=== PATIENT | female | born 1975 | race Caucasian/White ===

== ENCOUNTER 2017-03-12 20:42 | Emergency (ER) | payer MEDICAID ==
[2017-03-12 21:06] VITALS: BP 109/78; PULSE 79; RESP 20; TEMP 98.6; O2SAT 95
[2017-03-12] MEDS ORDERED: Sodium Chloride 0.9% 1,000 ML IV STA (22:33)
[2017-03-12 23:25] LABS: BASO # 0.1 K/uL (0.0-0.2); EOS # 0.2 K/uL (0.0-0.7)
[2017-03-12 23:27] LABS: EOS % 2.5 % (0.0-4.0); HEMATOCRIT 40.5 % (34.0-47.0); LYMPH # 1.7 K/uL (1.0-4.3); MEAN CELL VOLUME 91.4 fL (81.0-99.0); MEAN CORPUSCULAR HEMOGLOBIN 29.9 pg (27.0-31.0); MEAN CORPUSCULAR HGB CONC 32.7 g/dL (33.0-37.0); MEAN PLATELET VOLUME 9.7 fL (7.2-11.7); MONO # 0.7 K/uL (0.0-0.8); MONO % 9.4 % (0.0-10.0); RED CELL DISTRIBUTION WIDTH 13.2 % (11.5-14.5); WHITE BLOOD COUNT 7.5 K/uL (4.8-10.8)
[2017-03-12 23:33] LABS: CHLORIDE 101 mmol/L (98-107)
[2017-03-12 23:34] LABS: POTASSIUM 3.1 mmol/L (3.6-5.2); SODIUM 139 mmol/L (132-148)
[2017-03-12 23:36] LABS: ALB/GLOB RATIO 1.3 (1.0-2.1); ALKALINE PHOSPHATASE 53 U/L (38-126); AST/SGOT 23 U/L (14-36); BILIRUBIN,TOTAL 0.6 mg/dL (0.2-1.3); BLOOD UREA NITROGEN 11 mg/dL (7-17); CARBON DIOXIDE 29 mmol/L (22-30); GFR AFRICAN-AMERICAN > 60; GLUCOSE,RANDOM 77 mg/dL (65-105); TOTAL PROTEIN 7.2 g/dL (6.3-8.3)
[2017-03-12 23:37] LABS: ALT/SGPT 13 U/L (9-52); CALCIUM 8.7 mg/dl (8.6-10.4)
[2017-03-12] MEDS ORDERED: Sodium Chloride 0.9% 1,000 ML ONE (23:38)
--- NOTE | 2017-03-12 23:53 | US ---
EXAM: US Abdomen Complete CLINICAL HISTORY: 41 years old, female; Pain; Abdominal pain; Flank; Right; Additional info: Ruq pain, r flank pain TECHNIQUE: Real-time ultrasound of the abdomen (complete) with image documentation. COMPARISON: No relevant prior studies available. FINDINGS: Liver: Probable mild fatty infiltration. No mass. No intrahepatic ductal dilatation. Gallbladder: Contracted. Probable small gallstone. No definite wall thickening. No pericholecystic fluid. Common bile duct: No dilatation. No stones. Pancreas: Unremarkable as visualized. Kidneys: Normal echogenicity. No hydronephrosis. Spleen: No splenomegaly. Aorta: Unremarkable. No aneurysm. Inferior vena cava: Unremarkable. Free fluid: No significant free fluid. IMPRESSION: 1. Probable cholelithiasis. 2. Incidental/non-acute findings are described above.
[2017-03-13 00:23] LABS: RBC URINE < 1 /hpf (0-3); URINE BILIRUBIN NEGATIVE (NEGATIVE); URINE BLOOD NEGATIVE (NEGATIVE); URINE COLOR Straw (YELLOW); URINE GLUCOSE (UA) NORMAL (Normal); URINE KETONE NEGATIVE (NEGATIVE); URINE LEUKOCYTE ESTERASE TRACE Leu/uL (Negative); URINE PROTEIN NEGATIVE (NEGATIVE); URINE UROBILINOGEN NORMAL mg/dL (0.2-1.0); WBC URINE < 1 /hpf (0-5)
--- NOTE | 2017-03-13 00:42 | C.PDOC ---
History Of Present Illness 41 y/o F p/w abdominal pain x 4 days. Describes as R sided, intermittent, associated with nausea. Denies injury, rash, dyspnea, vomiting, diarrhea. Time Seen by Provider: 03/12/17 22:28 Chief Complaint (Nursing): Abdominal Pain Past Medical History Vital Signs: Last Vital Signs Temp 98.6 F 03/12/17 20:58 Pulse 79 03/12/17 20:58 Resp 20 03/12/17 20:58 BP 109/78 03/12/17 20:58 Pulse Ox 95 03/13/17 00:42 - [facility] Procedures PHYSICAL THERAPY [facility] (04/20/13) Family History: States: No Known Family Hx - Social History Hx Alcohol Use: Yes Hx Substance Use: No Review Of Systems Except As Marked, All Systems Reviewed And Found Negative. Constitutional: Negative for: Fever Cardiovascular: Negative for: Chest Pain Physical Exam - Physical Exam Appears: No Acute Distress Skin: Normal Color Head: Atraumatic, Normacephalic Eye(s): bilateral: PERRL Oral Mucosa: Moist Neck: Normal, Supple Cardiovascular: Rhythm Regular Respiratory: Normal Breath Sounds Gastrointestinal/Abdominal: Soft, Tenderness (RUQ), No Distention, No Guarding, No Rebound Back: No CVA Tenderness Extremity: No Tenderness, No Swelling Pulses: Left Radial: Normal, Right Radial: Normal Neurological/Psych: Normal Speech, Normal Cognition ED Course And Treatment - Laboratory Results Result Diagrams: 03/12/17 23:24 03/12/17 23:24 O2 Sat by Pulse Oximetry: 95 Medical Decision Making Medical Decision Making: UTI vs cholecystitis vs pancreatitis. Labs, toradol, IVF, Zofran, US. FINDINGS: Liver: Probable mild fatty infiltration. No mass. No intrahepatic ductal dilatation. Gallbladder: Contracted. Probable small gallstone. No definite wall thickening. No pericholecystic fluid. Common bile duct: No dilatation. No stones. Pancreas: Unremarkable as visualized. Kidneys: Normal echogenicity. No hydronephrosis. Spleen: No splenomegaly. Aorta: Unremarkable. No aneurysm. Inferior vena cava: Unremarkable. Free fluid: No significant free fluid. IMPRESSION: 1. Probable cholelithiasis. 2. Incidental/non-acute findings are described above. Patient in no acute distress. Labs unremarkable. Will discharge home, f/u PMD/ surgery, return to ER for worsening pain, fever, vomiting, dyspnea. Disposition - Disposition Disposition: HOME/ ROUTINE Disposition Time: 00:46 Condition: STABLE Prescriptions: Ibuprofen [Motrin] 1 tab PO Q6 #30 tab Ondansetron ODT [Zofran ODT] 4 mg PO Q8 #12 odt Instructions: Gallstones (ED) - Clinical Impression Clinical Impression: Cholelithiasis
== END 2017-03-13 01:30 | disposition home or self-care (01) ==
LOC: C.ER 20:42
DX: K80.20 Calculus of gallbladder without cholecystitis without obstruction (principal)
CPT/HCPCS: 76700; 80053; 81001; 83690; 84703; 85025; 96361; 96374; 96375; 99284; J1885; J2405; J7040

== ENCOUNTER 2017-08-18 16:24 | Emergency (ER) | payer MEDICAID ==
[2017-08-18 16:50] VITALS: TEMP 100
--- NOTE | 2017-08-18 18:05 | C.PDOC ---
History Of Present Illness 42 year old female presents to the ED for evaluation of subjective fever, generalized body aches and diarrhea (non-bloody) which began yesterday. Patient did not check her temperature but took Motrin yesterday for her subjective fever. She denies nausea, vomiting. Time Seen by Provider: 08/18/17 16:56 Chief Complaint (Nursing): Fever History Per: Patient History/Exam Limitations: no limitations Onset/Duration Of Symptoms: Hrs Current Symptoms Are (Timing): Still Present Additional History Per: Patient Past Medical History Reviewed: Historical Data, Nursing Documentation, Vital Signs Vital Signs: Last Vital Signs Temp 100.0 F H 08/18/17 16:45 Pulse 75 08/18/17 18:49 Resp 18 08/18/17 18:49 BP 124/72 08/18/17 18:49 Pulse Ox 98 08/18/17 18:49 - Medical History PMH: No Chronic Diseases Surgical History: Cholecystectomy - [facility] Procedures PHYSICAL THERAPY NEC (04/20/13) Family History: States: Unknown Family Hx - Social History Hx Alcohol Use: Yes Hx Substance Use: No - Immunization History Hx Tetanus Toxoid Vaccination: No Hx Influenza Vaccination: No Hx Pneumococcal Vaccination: No Review Of Systems Constitutional: Positive for: Fever Gastrointestinal: Positive for: Diarrhea (non-bloody ). Negative for: Nausea, Vomiting Musculoskeletal: Positive for: Other (generalized body aches) Physical Exam - Physical Exam Appears: Non-toxic, No Acute Distress Skin: Normal Color, Warm, Dry, Other (healing surgical laparoscopic scars to abdomen ) Head: Atraumatic, Normacephalic Eye(s): bilateral: Normal Inspection Ear(s): Bilateral: Normal Nose: Normal, No Discharge Oral Mucosa: Moist Throat: Normal, No Erythema, No Exudate Neck: Supple Chest: Symmetrical, No Deformity, No Tenderness Cardiovascular: Rhythm Regular, No Murmur Respiratory: Normal Breath Sounds, No Rales, No Rhonchi, No Wheezing Gastrointestinal/Abdominal: Soft, No Tenderness, No Guarding, No Rebound Extremity: Normal ROM, Capillary Refill (less than 2 seconds ) Neurological/Psych: Normal Speech, Normal Cognition Gait: Steady ED Course And Treatment O2 Sat by Pulse Oximetry: 97 (on RA ) Pulse Ox Interpretation: Normal Medical Decision Making Medical Decision Making: Flu test ordered and resulted negative. Patient reevaluated and seated comfortably in no distress. Fever resolved. Abdomen remains soft and nontender. no signs of dehydration. Advise patient to continue with Tylenol or Motrin for fever and to try rice, bananas, to help with diarrhea. Disposition Counseled Patient/Family Regarding: Diagnosis, Need For Followup, Rx Given - Disposition Disposition: HOME/ ROUTINE Disposition Time: 18:03 Condition: GOOD Additional Instructions: Your Flu test was negative. Take Tylenol or Motrin alternating every 4-6 hours for Fever 100.4F or higher. Drink plenty of fluids to prevent dehydration. Take florastor to help with diarrhea. Try low-fat diet with increase in fluids such as sport drink, gelatin. Try soup, rice, bread, crackers, cereal, bananas to help with diarrhea. Follow up with your primary medical doctor or clinic in 2 -5 days for further evaluation. Return to the emergency department at any time if symptoms persist or worsen. Prescriptions: Naproxen [Naprosyn] 1 tab PO BID PRN #25 tab PRN Reason: Pain Saccharomyces Boulardi [Florastor] 250 mg PO BID #20 cap Instructions: Viral Syndrome (ED) Forms: [employer] [facility] (Sinhala) - POA Present On Arrival: None - Clinical Impression Clinical Impression: Influenza-like illness - PA / RAVELER / Resident Statement MD/DO has reviewed & agrees with the documentation as recorded. - Scribe Statement The provider has reviewed the documentation as recorded by the Scribe (Deysi Gonzalez) All medical record entries made by the Scribe were at my direction and personally dictated by me. I have reviewed the chart and agree that the record accurately reflects my personal performance of the history, physical exam, medical decision making, and the department course for this patient. I have also personally directed, reviewed, and agree with the discharge instructions and disposition.
[2017-08-18 18:50] VITALS: BP 124/72; PULSE 75; RESP 18
[2017-08-18 19:30] VITALS: O2SAT 97
== END 2017-08-18 19:00 | disposition home or self-care (01) ==
LOC: C.ER 16:24
DX: J11.1 Influenza due to unidentified influenza virus with other respiratory manifestations (principal)

== ENCOUNTER 2017-11-28 15:31 | Emergency (ER) | payer MEDICAID ==
[2017-11-28 15:57] VITALS: RESP 18
[2017-11-28 16:40] LABS: SQUAMOUS EPITHIAL 7 /hpf (0-5); URINE BACTERIA FEW (<OCC); URINE BILIRUBIN NEGATIVE (NEGATIVE); URINE BLOOD NEGATIVE (NEGATIVE); URINE CLARITY Hazy (Clear); URINE COLOR Yellow (YELLOW); URINE GLUCOSE (UA) NORMAL (Normal); URINE LEUKOCYTE ESTERASE 1+ Leu/uL (Negative); URINE PROTEIN NEGATIVE (NEGATIVE); URINE UROBILINOGEN NORMAL mg/dL (0.2-1.0)
--- NOTE | 2017-11-28 17:28 | RAD ---
HISTORY: pain COMPARISON: No prior. FINDINGS: BOWEL: Stool retention.No small or large bowel distension noted. BONES: Fracture lytic lesions. Mild bilateral hip arthrosis OTHER FINDINGS: Bilateral 1 mm hemipelvic phleboliths probable. Right upper quadrant cholecystectomy clips inferred IMPRESSION: . Stool retention especially right colon. No mechanical bowel obstruction appreciated
--- NOTE | 2017-11-28 17:32 | C.PDOC ---
History Of Present Illness 42yo female with intermittent migraine headaches presents to ED complaining of headache and dull abdominal pain. She was seen and evaluated by her PCP and has medications for her pain. She denies any dysuria, fever, chills, cough, neck pain, chest pain or shortness of breath. Patient states she does not have a headache at present. No other complaints. Time Seen by Provider: 11/28/17 16:21 Chief Complaint (Nursing): Female Genitourinary History Per: Patient History/Exam Limitations: no limitations Onset/Duration Of Symptoms: Days Current Symptoms Are (Timing): Still Present Past Medical History Reviewed: Historical Data, Nursing Documentation, Vital Signs Vital Signs: Last Vital Signs Temp 98.2 F 11/28/17 17:44 Pulse 72 11/28/17 17:44 Resp 18 11/28/17 17:44 BP 114/81 11/28/17 17:44 Pulse Ox 100 11/28/17 17:44 - Medical History PMH: No Chronic Diseases Surgical History: Cholecystectomy - [facility] Procedures PHYSICAL THERAPY [facility] (04/20/13) Family History: States: Unknown Family Hx - Social History Hx Alcohol Use: Yes Hx Substance Use: No - Immunization History Hx Tetanus Toxoid Vaccination: No Hx Influenza Vaccination: No Hx Pneumococcal Vaccination: No Review Of Systems Except As Marked, All Systems Reviewed And Found Negative. Constitutional: Negative for: Fever, Chills Cardiovascular: Negative for: Chest Pain Respiratory: Negative for: Shortness of Breath Gastrointestinal: Positive for: Abdominal Pain Genitourinary: Negative for: Dysuria Musculoskeletal: Negative for: Neck Pain Neurological: Negative for: Headache Physical Exam - Physical Exam Appears: Non-toxic, No Acute Distress Skin: Normal Color, Warm, Dry Head: Normacephalic Eye(s): bilateral: Normal Inspection Nose: Normal Oral Mucosa: Moist Throat: Normal, No Erythema, No Exudate Neck: Normal ROM, Supple Chest: Symmetrical Cardiovascular: Rhythm Regular Respiratory: Normal Breath Sounds, No Wheezing Gastrointestinal/Abdominal: Normal Exam, Soft, No Tenderness Neurological/Psych: Oriented x3, Normal Speech, Normal Cognition ED Course And Treatment O2 Sat by Pulse Oximetry: 98 (RA) Pulse Ox Interpretation: Normal Medical Decision Making Medical Decision Making: Impression: Abdominal discomfort Plan: -- XR Abdomen flat plate XR reviewed, patient is constipated. Stable for discharge home. Disposition Counseled Patient/Family Regarding: Studies Performed, Diagnosis, Need For Followup - Disposition Disposition: HOME/ ROUTINE Disposition Time: 17:30 Condition: STABLE Prescriptions: Psyllium Husk (with Sugar) [Metamucil Smooth Texture] 3.4 gm PO DAILY #15 packet Instructions: Constipation, Adult (DC) Forms: [facility] (Polish), General Discharge Instructions - POA Present On Arrival: None - Clinical Impression Clinical Impression: Constipation - Scribe Statement The provider has reviewed the documentation as recorded by the Scribe (Christa Gregory) Provider Attestation: All medical record entries made by the Scribe were at my direction and personally dictated by me. I have reviewed the chart and agree that the record accurately reflects my personal performance of the history, physical exam, medical decision making, and the department course for this patient. I have also personally directed, reviewed, and agree with the discharge instructions and disposition.
[2017-11-28 17:45] VITALS: BP 114/81; PULSE 72; TEMP 98.2
[2017-11-28 19:50] VITALS: O2SAT 98
== END 2017-11-28 17:51 | disposition home or self-care (01) ==
LOC: C.ER 15:31
DX: K59.00 Constipation, unspecified (principal)

== ENCOUNTER 2018-02-16 15:40 | Emergency (ER) | payer MEDICAID ==
[2018-02-16] MEDS ORDERED: Sodium Chloride 0.9% 1,000 ML IV ONE (15:54)
[2018-02-16] MEDS ORDERED: Sodium Chloride 0.9% 1,000 ML ONE (16:04)
[2018-02-16 16:24] LABS: BASO # 0.1 K/uL (0.0-0.2); BASO % 1.1 % (0.0-2.0); EOS # 0.2 K/uL (0.0-0.7); EOS % 2.9 % (0.0-4.0); LYMPH # 1.8 K/uL (1.0-4.3); LYMPH % 22.5 % (20.0-40.0); MEAN CORPUSCULAR HEMOGLOBIN 30.5 pg (27.0-31.0); MEAN CORPUSCULAR HGB CONC 34.8 g/dL (33.0-37.0); MEAN PLATELET VOLUME 8.6 fL (7.2-11.7); MONO # 0.7 K/uL (0.0-0.8); MONO % 8.6 % (0.0-10.0); NEUT # 5.2 K/uL (1.8-7.0); NEUT % 64.9 % (50.0-75.0); NRBC % 0.2 % (0.0-2.0); RBC 4.58 Mil/uL (3.80-5.20); RED CELL DISTRIBUTION WIDTH 12.7 % (11.5-14.5)
[2018-02-16 16:25] LABS: MEAN CELL VOLUME 87.5 fL (81.0-99.0)
[2018-02-16 16:28] LABS: SQUAMOUS EPITHIAL < 1 /hpf (0-5); URINE BACTERIA RARE (<OCC); URINE BILIRUBIN NEGATIVE (NEGATIVE); URINE BLOOD NEGATIVE (NEGATIVE); URINE CLARITY Clear (Clear); URINE COLOR Yellow (YELLOW); URINE GLUCOSE (UA) NORMAL (Normal); URINE LEUKOCYTE ESTERASE TRACE Leu/uL (Negative); URINE PROTEIN NEGATIVE (NEGATIVE); URINE UROBILINOGEN NORMAL mg/dL (0.2-1.0)
[2018-02-16 16:29] LABS: HCG,QUALITATIVE URINE NEGATIVE (NEGATIVE)
[2018-02-16 16:37] LABS: ALB/GLOB RATIO 1.3 (1.0-2.1); ALBUMIN 4.3 g/dL (3.5-5.0); ALT/SGPT 13 U/L (9-52); AST/SGOT 36 U/L (14-36); BLOOD UREA NITROGEN 11 mg/dL (7-17); CALCIUM 8.6 mg/dl (8.6-10.4); GFR AFRICAN-AMERICAN > 60; GFR NON-AFRICAN AMERICAN > 60; LIPASE 74 U/L (23-300)
[2018-02-16 17:04] LABS: BARBITURATES, UR NEGATIVE (NEGATIVE); BENZODIAZEPINES, UR NEGATIVE (NEGATIVE); OPIATES, UR NEGATIVE (NEGATIVE)
--- NOTE | 2018-02-16 17:10 | C.PDOC ---
History Of Present Illness 42 year old female presents to the ED c/o crampy periumbilical abdominal pain for the past 2-3 days. Patient denies fever, chills, nausea, vomit, diarrhea, constipations, recent travel, sick contacts. Time Seen by Provider: 02/16/18 15:48 Chief Complaint (Nursing): Abdominal Pain History Per: Patient History/Exam Limitations: no limitations Onset/Duration Of Symptoms: Days (2-3) Current Symptoms Are (Timing): Still Present Location Of Pain/Discomfort: Periumbilical Radiation Of Pain To:: None Quality Of Discomfort: Cramping Associated Symptoms: denies: Nausea, Vomiting, Diarrhea, Constipation Exacerbating Factors: None Alleviating Factors: None Recent travel outside of the [place]: No Additional History Per: Patient Abnormal Vaginal Bleeding: No Past Medical History Reviewed: Historical Data, Nursing Documentation, Vital Signs Vital Signs: Last Vital Signs Temp 98.5 F 02/16/18 17:24 Pulse 69 02/16/18 17:24 Resp 18 02/16/18 17:24 BP 107/71 02/16/18 17:24 Pulse Ox 100 02/16/18 17:24 - Medical History PMH: No Chronic Diseases Surgical History: Cholecystectomy - [facility] Procedures PHYSICAL THERAPY [facility]EC (04/20/13) Family History: States: Unknown Family Hx - Social History Hx Alcohol Use: Yes Hx Substance Use: No - Immunization History Hx Tetanus Toxoid Vaccination: No Hx Influenza Vaccination: No Hx Pneumococcal Vaccination: No Review Of Systems Constitutional: Negative for: Fever, Chills Cardiovascular: Negative for: Chest Pain Respiratory: Negative for: Shortness of Breath Gastrointestinal: Positive for: Abdominal Pain. Negative for: Nausea, Vomiting , Constipation Skin: Negative for: Rash Neurological: Negative for: Weakness, Numbness Physical Exam - Physical Exam Appears: Non-toxic, No Acute Distress Skin: Normal Color, Warm, Dry Head: Atraumatic, Normacephalic Eye(s): bilateral: Normal Inspection Nose: No Discharge Oral Mucosa: Moist Neck: Normal ROM, Supple Chest: Symmetrical Cardiovascular: Rhythm Regular, No Murmur Respiratory: Normal Breath Sounds, No Rales, No Rhonchi, No Wheezing Gastrointestinal/Abdominal: Soft, No Tenderness, No Guarding, No Rebound, Other (obese. dull to percussion on the right side. tympanic to percussion on the epigastrrum. negative Murpohys and McBurneys) Extremity: Normal ROM, No Tenderness, No Swelling Neurological/Psych: Oriented x3, Normal Speech Gait: Steady ED Course And Treatment - Laboratory Results Result Diagrams: 02/16/18 16:21 02/16/18 16:21 Lab Interpretation: Normal (ua nl) Urine POC: Negative O2 Sat by Pulse Oximetry: 99 (ON RA) Pulse Ox Interpretation: Normal - Radiology CXR: Interpreted by Me CXR Interpretation: Yes: No Acute Disease - Other Rad abd x 2 X-Ray: Interpreted by Me (+FOS) Reevaluation Time: 17:11 Reassessment Condition: Unchanged Medical Decision Making Medical Decision Making: Impression: abdominal pain constipation Plan: * Labs * Obstructive series X-Ray * IV fluids * Toradol 30 mg IVP * UA Disposition Doctor Will See Patient In The: Office Counseled Patient/Family Regarding: Studies Performed, Diagnosis - Disposition Referrals: [facility] [Outside] [facility] [Outside] Disposition: HOME/ ROUTINE Disposition Time: 17:11 Condition: GOOD Additional Instructions: drink a bottle of Mag Citrate now- re-evaluate your abdominal discomfort after using the bathroom 2-3 times diet and exercise changes occasional laxatives as needed Instructions: Constipation in Adults Forms: [facility] (Czech) - Clinical Impression Clinical Impression: Colicky periumbilical abdominal pain - Scribe Statement The provider has reviewed the documentation as recorded by the Scribe Onur Gee All medical record entries made by the Scribe were at my direction and personally dictated by me. I have reviewed the chart and agree that the record accurately reflects my personal performance of the history, physical exam, medical decision making, and the department course for this patient. I have also personally directed, reviewed, and agree with the discharge instructions and disposition.
[2018-02-16 17:25] VITALS: BP 107/71; PULSE 69; RESP 18; TEMP 98.5
[2018-02-16 17:31] LABS: PHENCYCLIDINE, UR NEGATIVE (NEGATIVE)
--- NOTE | 2018-02-16 18:00 | RAD ---
PROCEDURE: Radiographs of the chest and abdomen (obstructive series) HISTORY: abd pain COMPARISON: No prior. TECHNIQUE: AP radiograph of the chest, with upright and supine radiographs of the abdomen. FINDINGS: CHEST: Lungs: Clear. Cardiovascular: Normal size heart. No pulmonary vascular congestion. Pleura: No pleural fluid. No pneumothorax. Other findings: None. ABDOMEN AND PELVIS: Bowel: Unremarkable bowel gas pattern. No evidence of mechanical obstruction. Moderate retained fecal material seen the right hemicolon. Free air: None. Bones: Unremarkable. Other findings: None. IMPRESSION: Unremarkable radiographs of chest and abdomen. No evidence of mechanical bowel obstruction.
[2018-02-16 19:56] VITALS: O2SAT 99
== END 2018-02-16 17:25 | disposition home or self-care (01) ==
LOC: C.ER 15:40
DX: R10.84 Generalized abdominal pain (principal)
CPT/HCPCS: 74022; 80053; 80324; 80345; 80346; 80349; 80353; 80358; 80361; 81001; 83690; 83992; 84703; 85025; 96361; 96374; 99284; J1885; J7040

== ENCOUNTER 2018-04-21 16:02 | Emergency (ER) | payer MEDICAID ==
[2018-04-21 16:44] VITALS: BP 107/76; PULSE 78; RESP 20; TEMP 98.2; O2SAT 100
--- NOTE | 2018-04-21 17:42 | C.PDOC ---
History Of Present Illness 42 y/o female c/o headache, cough w/ white sputum, sore throat, and subjective fever x 1 week. Pt states that the cough is worse at night with post nasal drip. Denies having sick contacts. Time Seen by Provider: 04/21/18 16:48 Chief Complaint (Nursing): Cough, Cold, Congestion History Per: Patient History/Exam Limitations: no limitations Onset/Duration Of Symptoms: Days Current Symptoms Are (Timing): Still Present Severity: Moderate Past Medical History Reviewed: Historical Data, Nursing Documentation, Vital Signs Vital Signs: Last Vital Signs Temp 98.2 F 04/21/18 16:41 Pulse 78 04/21/18 16:41 Resp 20 04/21/18 16:41 BP 107/76 04/21/18 16:41 Pulse Ox 100 04/21/18 17:54 - Medical History PMH: No Chronic Diseases Surgical History: Cholecystectomy - [facility] Procedures PHYSICAL THERAPY [facility] (04/20/13) Family History: States: No Known Family Hx - Social History Hx Alcohol Use: Yes Hx Substance Use: No - Immunization History Hx Tetanus Toxoid Vaccination: Yes Hx Influenza Vaccination: No Hx Pneumococcal Vaccination: No Review Of Systems Constitutional: Positive for: Fever (subjective fever). Negative for: Chills ENT: Positive for: Throat Pain Respiratory: Positive for: Cough, Sputum (white sputum) Gastrointestinal: Negative for: Nausea, Vomiting Neurological: Positive for: Headache Physical Exam - Physical Exam Appears: Non-toxic, No Acute Distress Skin: Normal Color, Warm, Dry Head: Atraumatic, Normacephalic Eye(s): bilateral: Normal Inspection Ear(s): Bilateral: TM Obscured By Wax Nose: Normal, No Discharge Oral Mucosa: Moist Throat: Normal, No Erythema, No Exudate Neck: Supple Chest: Symmetrical Cardiovascular: Rhythm Regular Respiratory: Normal Breath Sounds, No Rales, No Rhonchi, No Wheezing Neurological/Psych: Oriented x3, Normal Speech ED Course And Treatment O2 Sat by Pulse Oximetry: 100 (RA) Pulse Ox Interpretation: Normal Medical Decision Making Medical Decision Making: Plan: --POC Urine Test Updates: Patient has been discharged and instructed to follow up with PMD in 2-3 days. Disposition Counseled Patient/Family Regarding: Diagnosis, Need For Followup, Rx Given - Disposition Disposition: HOME/ ROUTINE Disposition Time: 17:40 Condition: GOOD Additional Instructions: Please take medications as prescribed. Follow up with your doctor in 2-3 days. Return to R for any worse symptoms. Prescriptions: Benzonatate [Tessalon Perle] 100 mg PO TID #12 capsule Loratadine/Pseudoephedrine [Claritin-D 24 Hour Tablet] 1 each PO DAILY #14 tab.er.24h Naproxen 500 mg PO BID #20 tab Instructions: Upper Respiratory Infection (ED) Forms: [facility] (Cymraes), General Discharge Instructions - Clinical Impression Clinical Impression: Upper respiratory infection - PA / SENIOR PROCESS CONTROL TECH / Resident Statement MD/DO has reviewed & agrees with the documentation as recorded. - Scribe Statement The provider has reviewed the documentation as recorded by the Miki Hwang Provider Attestation All medical record entries made by the Miki were at my direction and personally dictated by me. I have reviewed the chart and agree that the record accurately reflects my personal performance of the history, physical exam, medical decision making, and the department course for this patient. I have also personally directed, reviewed, and agree with the discharge instructions and disposition.
== END 2018-04-21 17:55 | disposition home or self-care (01) ==
LOC: C.ER 16:02
DX: J06.9 Acute upper respiratory infection, unspecified (principal)

== ENCOUNTER 2018-05-27 15:27 | Emergency (ER) | payer MEDICAID ==
[2018-05-27 15:33] VITALS: PULSE 69; RESP 18; O2SAT 98
--- NOTE | 2018-05-27 15:45 | C.PDOC ---
History Of Present Illness 43 y/o female with history of cholecystectomy presents to ED with c/o right sided abdominal pain for 3 weeks. Occasional has diarrhea though reports last bowel movement yesterday as normal. REports that currently she has no pain. Notes she has a h/o similar episodes in the past and was diagnosed with constipation. Denies fever, nausea, vomiting, dysuria, hematuria, back pain, vaginal discharge/bleeding or any other complaints at this time. Time Seen by Provider: 05/27/18 15:41 Chief Complaint (Nursing): Abdominal Pain History Per: Patient History/Exam Limitations: no limitations Onset/Duration Of Symptoms: Intermittent Episodes Location Of Pain/Discomfort: RUQ, RLQ Past Medical History Reviewed: Historical Data, Nursing Documentation, Vital Signs Vital Signs: Last Vital Signs Temp 98 F 05/27/18 18:29 Pulse 69 05/27/18 18:29 Resp 18 05/27/18 18:29 BP 136/79 05/27/18 18:29 Pulse Ox 98 05/27/18 18:29 - Medical History PMH: No Chronic Diseases Surgical History: Cholecystectomy - [facility] Procedures PHYSICAL THERAPY NEC (04/20/13) Family History: States: No Known Family Hx - Social History Hx Alcohol Use: Yes Hx Substance Use: No - Immunization History Hx Tetanus Toxoid Vaccination: Yes Hx Influenza Vaccination: No Hx Pneumococcal Vaccination: No Review Of Systems Except As Marked, All Systems Reviewed And Found Negative. Gastrointestinal: Positive for: Abdominal Pain, Diarrhea Skin: Negative for: Rash Physical Exam - Physical Exam Appears: Well, Non-toxic, No Acute Distress Skin: Warm, Dry, No Rash Head: Atraumatic, Normacephalic Eye(s): bilateral: Normal Inspection, EOMI Nose: Normal Oral Mucosa: Moist Neck: Normal, Normal ROM, Supple Chest: Symmetrical Cardiovascular: Rhythm Regular Respiratory: Normal Breath Sounds, No Rales, No Rhonchi, No Wheezing Gastrointestinal/Abdominal: Normal Exam, Bowel Sounds, Soft, No Tenderness, No Guarding, No Rebound Back: No CVA Tenderness, No Muscle Spasm Neurological/Psych: Oriented x3, Normal Speech, Normal Cognition ED Course And Treatment - Laboratory Results Result Diagrams: 05/27/18 16:26 05/27/18 16:26 O2 Sat by Pulse Oximetry: 98 (RA) Pulse Ox Interpretation: Normal - Other Rad Obs Series X-Ray: Viewed By Me, Read By Radiologist Interpretation: Accession No. : [id number]. Patient Name / ID : VENKATA RICE / [id number]. Exam Date : 05/27/2018 16:44:11 ( Approved ). Study Comment : Sex / Age : F / 43Y. Creator : Jeff Smith MD. Dictator : Jeff Smith MD. 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 Approver2 : Report Date : 05/27/2018 18:30:36. My Comment : . Date of service: 05/27/2018. PROCEDURE: Radiographs of the chest and abdomen ( obstructive series). HISTORY: Abd Pain. COMPARISON: No prior. TECHNIQUE: AP radiograph of the chest, with upright and supine radiographs of the abdomen. FINDINGS: CHEST: Lungs: Clear. Cardiovascular: Normal size heart. No pulmonary vascular congestion. Pleura: No pleural fluid. No pneumothorax. Other findings: None. ABDOMEN AND PELVIS: Bowel: Unremarkable bowel gas pattern. No evidence of mechanical obstruction. Free air: None. Bones: Unremarkable. Other findings: Surgical clips right upper quadrant abdomen. IMPRESSION: Unremarkable radiographs of chest and abdomen. No evidence of mechanical bowel obstruction. Progress Note: UA, blood work, Obstructive series ordered. On re-evaluation, patient is resting comfortably, abdomen remains soft, and patient is tolerating PO. Labs and XR show no indication of acute pathology or surgical abdomen. OFfered further imaging, PT states the pain has not returned while she has been in the ed and requests to be discharge. Instructed to follow up with the GI in 1 -2 days or return to ER if symtpoms persist or worsen. Disposition - Disposition Referrals: Elie Torres MD [Staff Provider] - Disposition: HOME/ ROUTINE Disposition Time: 17:38 Condition: STABLE Additional Instructions: Follow up with your primary medical doctor or clinic in 2-5 days for further evaluation. Return to the emergency department at any time if symptoms persist or worsen. 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 - Scribe Statement The provider has reviewed the documentation as recorded by the Scribleti Vilchis All medical record entries made by the Miki were at my direction and personally dictated by me. I have reviewed the chart and agree that the record accurately reflects my personal performance of the history, physical exam, medical decision making, and the department course for this patient. I have also personally directed, reviewed, and agree with the discharge instructions and disposition.
[2018-05-27 16:31] LABS: BASO # 0.1 K/uL (0.0-0.2); BASO % 1.2 % (0.0-2.0); EOS # 0.3 K/uL (0.0-0.7); EOS % 4.2 % (0.0-4.0); HEMOGLOBIN 13.5 g/dL (11.0-16.0); LYMPH # 1.8 K/uL (1.0-4.3); LYMPH % 26.7 % (20.0-40.0); MEAN CELL VOLUME 86.7 fL (81.0-99.0); MEAN CORPUSCULAR HEMOGLOBIN 29.6 pg (27.0-31.0); MEAN CORPUSCULAR HGB CONC 34.1 g/dL (33.0-37.0); MEAN PLATELET VOLUME 8.3 fL (7.2-11.7); MONO # 0.7 K/uL (0.0-0.8); MONO % 10.3 % (0.0-10.0); NEUT % 57.6 % (50.0-75.0); RBC 4.58 Mil/uL (3.80-5.20); RED CELL DISTRIBUTION WIDTH 13.1 % (11.5-14.5); WHITE BLOOD COUNT 6.9 K/uL (4.8-10.8)
[2018-05-27 16:40] LABS: SQUAMOUS EPITHIAL 6 /hpf (0-5); URINE BACTERIA RARE (<OCC); URINE BILIRUBIN NEGATIVE (NEGATIVE); URINE BLOOD NEGATIVE (NEGATIVE); URINE CLARITY Clear (Clear); URINE COLOR Yellow (YELLOW); URINE GLUCOSE (UA) NORMAL (Normal); URINE LEUKOCYTE ESTERASE 2+ Leu/uL (Negative); URINE PROTEIN NEGATIVE (NEGATIVE); URINE UROBILINOGEN NORMAL mg/dL (0.2-1.0)
[2018-05-27 16:41] LABS: HCG,QUALITATIVE URINE NEGATIVE (NEGATIVE)
[2018-05-27 16:43] LABS: ALB/GLOB RATIO 1.4 (1.0-2.1); ALBUMIN 4.2 g/dL (3.5-5.0); ALT/SGPT 19 U/L (9-52); AST/SGOT 25 U/L (14-36); BLOOD UREA NITROGEN 11 mg/dL (7-17); CALCIUM 8.8 mg/dl (8.6-10.4); GFR NON-AFRICAN AMERICAN > 60; LIPASE 66 U/L (23-300)
[2018-05-27 18:29] VITALS: BP 136/79; TEMP 98
--- NOTE | 2018-05-27 18:32 | RAD ---
Date of service: 05/27/2018 PROCEDURE: Radiographs of the chest and abdomen (obstructive series) HISTORY: Abd Pain COMPARISON: No prior. TECHNIQUE: AP radiograph of the chest, with upright and supine radiographs of the abdomen. FINDINGS: CHEST: Lungs: Clear. Cardiovascular: Normal size heart. No pulmonary vascular congestion. Pleura: No pleural fluid. No pneumothorax. Other findings: None. ABDOMEN AND PELVIS: Bowel: Unremarkable bowel gas pattern. No evidence of mechanical obstruction. Free air: None. Bones: Unremarkable. Other findings: Surgical clips right upper quadrant abdomen. IMPRESSION: Unremarkable radiographs of chest and abdomen. No evidence of mechanical bowel obstruction.
== END 2018-05-27 18:29 | disposition home or self-care (01) ==
LOC: C.ER 15:27
DX: R10.11 Right upper quadrant pain (principal); R10.31 Right lower quadrant pain

== ENCOUNTER 2018-08-07 16:04 | Emergency (ER) | payer MEDICAID ==
[2018-08-07 16:11] VITALS: BMI 23.2
[2018-08-07 16:16] VITALS: BP 101/72; PULSE 73; RESP 20; TEMP 97.7; O2SAT 100
--- NOTE | 2018-08-07 17:31 | C.PDOC ---
History Of Present Illness 43 year old female presents to the ED for evaluation of cough and congestion for 1 week. Denies fever, chills, nausea, vomiting, and any other associated symptoms. Time Seen by Provider: 08/07/18 16:19 Chief Complaint (Nursing): Flu-like Symptoms History Per: Patient History/Exam Limitations: no limitations Onset/Duration Of Symptoms: Days Current Symptoms Are (Timing): Still Present Past Medical History Reviewed: Historical Data, Nursing Documentation, Vital Signs Vital Signs: Last Vital Signs Temp 97.7 F 08/07/18 16:10 Pulse 73 08/07/18 16:10 Resp 20 08/07/18 16:10 BP 101/72 08/07/18 16:10 Pulse Ox 100 08/07/18 16:10 Surgical History: Cholecystectomy - [facility] Procedures PHYSICAL THERAPY NEC (04/20/13) Family History: States: Unknown Family Hx - Social History Hx Alcohol Use: Yes Hx Substance Use: No - Immunization History Hx Tetanus Toxoid Vaccination: Yes Hx Influenza Vaccination: No Hx Pneumococcal Vaccination: No Review Of Systems Except As Marked, All Systems Reviewed And Found Negative. Constitutional: Negative for: Fever, Chills ENT: Positive for: Nose Congestion Respiratory: Positive for: Cough Gastrointestinal: Negative for: Nausea, Vomiting Physical Exam - Physical Exam Appears: Well, Non-toxic, No Acute Distress Skin: Normal Color, Warm, Dry Head: Atraumatic, Normacephalic Eye(s): bilateral: Normal Inspection Chest: Symmetrical, No Deformity Cardiovascular: Rhythm Regular, No Murmur Respiratory: Normal Breath Sounds, No Accessory Muscle Use, No Rales, No Rhonchi, Wheezing (diffuse, bilaterally. ) Neurological/Psych: Oriented x3, Normal Speech ED Course And Treatment O2 Sat by Pulse Oximetry: 100 (RA) Pulse Ox Interpretation: Normal - Other Rad CXR X-Ray: Viewed By Me, Read By Radiologist Interpretation: FINDINGS: LUNGS: No active pulmonary disease. PLEURA: No significant pleural effusion identified. No pneumothorax apparent. CARDIOVASCULAR: No aortic atherosclerotic calcification present. Normal cardiac size. No pulmonary vascular congestion. OSSEOUS STRUCTURES: No significant abnormalities. VISUALIZED UPPER ABDOMEN: Normal. OTHER FINDINGS: None. IMPRESSION: No active disease. Progress Note: Plan: CXR. POC urine. Progress/Update: Patient stable for discharge home. Prescribed Bromfed Dm cough, Flonase, and Zithromax. Disposition - Disposition Disposition: HOME/ ROUTINE Disposition Time: 18:02 Condition: STABLE Additional Instructions: Follow up with PMD within 1-2 days. Return to ED if feel worse. Prescriptions: Brompheniramine/Pseudoephed/Dm [Bromfed Dm Cough 118 ml] 10 ml PO Q4 #300 ml Fluticasone Nasal [Flonase] 1 spr NS BID #1 spr Azithromycin [Zithromax] 250 mg PO DAILY #4 tab Instructions: Acute Bronchitis Forms: [employer] (Albanian), Work Excuse - Clinical Impression Clinical Impression: Bronchitis, Upper respiratory infection - PA / RESEARCH TECHNOLOGIST / Resident Statement MD/DO has reviewed & agrees with the documentation as recorded. - Scribe Statement The provider has reviewed the documentation as recorded by the Scribe (Melissa Ruelas) All medical record entries made by the Scribe were at my direction and personally dictated by me. I have reviewed the chart and agree that the record accurately reflects my personal performance of the history, physical exam, medical decision making, and the department course for this patient. I have also personally directed, reviewed, and agree with the discharge instructions and disposition.
[2018-08-07] MEDS ORDERED: Promethazine DM 6.25 mg-15 mg/5 ml Syrup PO STA (18:00)
--- NOTE | 2018-08-07 18:11 | RAD ---
Date of service: 08/07/2018 HISTORY: cough COMPARISON: No prior. TECHNIQUE: Chest PA and lateral FINDINGS: LUNGS: No active pulmonary disease. PLEURA: No significant pleural effusion identified. No pneumothorax apparent. CARDIOVASCULAR: No aortic atherosclerotic calcification present. Normal cardiac size. No pulmonary vascular congestion. OSSEOUS STRUCTURES: No significant abnormalities. VISUALIZED UPPER ABDOMEN: Normal. OTHER FINDINGS: None. IMPRESSION: No active disease.
[2018-08-07] MEDS ORDERED: Promethazine DM 6.25 mg-15 mg/5 ml Syrup ONE (18:14)
== END 2018-08-07 18:13 | disposition home or self-care (01) ==
LOC: C.ER 16:04
DX: J40 Bronchitis, not specified as acute or chronic (principal); J06.9 Acute upper respiratory infection, unspecified

== ENCOUNTER 2018-11-18 16:07 | Emergency (ER) | payer MEDICAID ==
[2018-11-18 16:07] VITALS: BMI 23.2
[2018-11-18 16:20] VITALS: BP 107/74; PULSE 80; RESP 20; TEMP 98.3; O2SAT 96
--- NOTE | 2018-11-18 16:37 | C.PDOC ---
Time Seen by Provider: 11/18/18 16:17 Chief Complaint (Nursing): Flu-like Symptoms History Per: Patient Onset/Duration Of Symptoms: Days (about 1 week) Current Symptoms Are (Timing): Still Present Associated Symptoms: Sore Throat, Cough, Myalgias, Nasal Congestion, Nausea, Vomiting, Diarrhea Severity: Moderate Additional History Per: Prior Records Past Medical History Reviewed: Historical Data, Nursing Documentation, Vital Signs Vital Signs: Last Vital Signs Temp 98.3 F 11/18/18 16:08 Pulse 80 11/18/18 16:08 Resp 20 11/18/18 16:08 BP 107/74 11/18/18 16:08 Pulse Ox 96 11/18/18 16:08 - Medical History PMH: No Chronic Diseases Surgical History: Cholecystectomy - [facility] Procedures PHYSICAL THERAPY NEC (04/20/13) Family History: States: Unknown Family Hx - Social History Hx Tobacco Use: No Hx Alcohol Use: Yes Hx Substance Use: No - Immunization History Hx Tetanus Toxoid Vaccination: Yes Hx Influenza Vaccination: No Hx Pneumococcal Vaccination: No Review Of Systems Except As Marked, All Systems Reviewed And Found Negative. Constitutional: Positive for: Fever ENT: Positive for: Nose Congestion. Negative for: Ear Pain Cardiovascular: Negative for: Chest Pain Respiratory: Positive for: Cough. Negative for: Shortness of Breath Gastrointestinal: Positive for: Vomiting, Diarrhea, Hematochezia. Negative for: Abdominal Pain Genitourinary: Negative for: Dysuria Musculoskeletal: Negative for: Neck Pain Skin: Negative for: Rash Neurological: Negative for: Weakness, Seizures, Altered Mental Status Physical Exam - Physical Exam Appears: Non-toxic, No Acute Distress Skin: Normal Color, Warm, Dry, No Rash Head: Atraumatic, Normacephalic Eye(s): bilateral: Normal Inspection, PERRL, EOMI Throat: Erythema, No Exudate, No Drooling, No Mass Neck: Normal ROM, Supple Cardiovascular: Rhythm Regular Respiratory: Normal Breath Sounds, No Accessory Muscle Use Gastrointestinal/Abdominal: Soft, No Tenderness Extremity: Normal ROM Neurological/Psych: Oriented x3, Normal Speech, Normal Motor, Normal Sensation ED Course And Treatment O2 Sat by Pulse Oximetry: 96 Pulse Ox Interpretation: Normal Disposition Counseled Patient/Family Regarding: Diagnosis, Need For Followup, Rx Given - Disposition Disposition: HOME/ ROUTINE Disposition Time: 16:37 Condition: STABLE Additional Instructions: Drink plenty of fluids. Follow up with your doctor. Return to the ER if you develop high fever, shortness of breath, abdominal or chest pain, worsening of symptoms or if you have any other concerns. Prescriptions: Promethazine HCl/Codeine [Prometh-Codein 6.25-10 mg/5 ml] 5 ml PO Q4 PRN #240 ml PRN Reason: Cough Instructions: Viral Syndrome (DC) Forms: [employer] (Divehi) - Clinical Impression Clinical Impression: Influenza-like illness
== END 2018-11-18 16:46 | disposition home or self-care (01) ==
LOC: C.ER 16:07
DX: J11.1 Influenza due to unidentified influenza virus with other respiratory manifestations (principal)

== ENCOUNTER 2019-01-15 15:29 | Emergency (ER) | payer MEDICAID ==
[2019-01-15 15:29] VITALS: BMI 23.2
[2019-01-15 15:35] VITALS: BP 100/69; PULSE 100; RESP 20; TEMP 98; O2SAT 100
[2019-01-15] MEDS ORDERED: Benzocaine/Menthol (Cepacol) Lozenge MT ONE (15:51)
--- NOTE | 2019-01-15 16:13 | C.PDOC ---
History Of Present Illness 43 y/o female with no significant PMHx presents to the ED with complaints of flu-like symptoms. Associated with nasal congestion, cough, chills, sweats, and headaches. She denies any vomiting, or diarrhea. Patient admits to sick contact, states everyone at home is sick with similar symptoms. Time Seen by Provider: 01/15/19 15:41 Chief Complaint (Nursing): Flu-like Symptoms History Per: Patient History/Exam Limitations: no limitations Onset/Duration Of Symptoms: Days Current Symptoms Are (Timing): Still Present Location Of Pain: Headache Sick Contacts (Context): Family Member(s) Associated Symptoms: Chills, Cough, Nasal Congestion Past Medical History Reviewed: Historical Data, Nursing Documentation, Vital Signs Vital Signs: Last Vital Signs Temp 98 F 01/15/19 15:33 Pulse 100 H 01/15/19 15:33 Resp 20 01/15/19 15:33 BP 100/69 01/15/19 15:33 Pulse Ox 100 01/15/19 15:33 Surgical History: Cholecystectomy - [facility] Procedures PHYSICAL THERAPY NEC (04/20/13) Family History: States: Unknown Family Hx - Social History Hx Tobacco Use: No Hx Alcohol Use: Yes Hx Substance Use: No - Immunization History Hx Tetanus Toxoid Vaccination: Yes Hx Influenza Vaccination: No Hx Pneumococcal Vaccination: No Review Of Systems Constitutional: Positive for: Chills, Sweats Eyes: Negative for: Vision Change ENT: Positive for: Nose Congestion, Throat Pain Cardiovascular: Negative for: Chest Pain Respiratory: Positive for: Cough. Negative for: Shortness of Breath Gastrointestinal: Negative for: Nausea, Vomiting, Diarrhea Neurological: Positive for: Headache. Negative for: Weakness, Dizziness Physical Exam - Physical Exam Appears: Non-toxic, No Acute Distress Skin: Normal Color, Warm, Dry Head: Atraumatic, Normacephalic Eye(s): bilateral: Normal Inspection, PERRL, EOMI Oral Mucosa: Moist Throat: Normal (Pharynx clear, uvula midline), No Erythema, No Exudate Neck: Normal ROM, Supple Chest: Symmetrical Cardiovascular: Rhythm Regular, No Murmur Respiratory: No Rales, No Rhonchi, No Wheezing, Other (Lungs clear bilaterally) Gastrointestinal/Abdominal: Soft, No Tenderness, No Distention Extremity: Bilateral: Atraumatic, No Pedal Edema, Normal ROM Neurological/Psych: Oriented x3, Normal Speech ED Course And Treatment O2 Sat by Pulse Oximetry: 100 (RA) Pulse Ox Interpretation: Normal Medical Decision Making Medical Decision Making: Impression: Influenza-like illness Plan: Supportive care provided in the ED, patient given Cepacol, Sudafed, and Motrin. On reassessment patient reports improvement in symptoms. Lungs are clear bilaterally. Patient is stable for discharge home. Advised patient to take all meds as written and follow up with PMD/clinic. Disposition - Disposition Referrals: [facility] [Outside] [facility] [Outside] [facility] [Outside] Disposition: HOME/ ROUTINE Disposition Time: 16:30 Condition: GOOD Additional Instructions: Take all meds as directed and encourage hydration per oral Prescriptions: Dextromethorphan/Benzocaine [Cepacol Sorethroat-Cough Leandra] 1 each PO Q3 #10 lozenge Ibuprofen [Motrin] 600 mg PO Q6 #20 tab Pseudoephedrine HCl [Sudafed] 30 mg PO Q6 #15 tablet Instructions: Viral Upper Respiratory Infection, Adult (DC) Forms: [employer] (Swiss) - Clinical Impression Clinical Impression: Upper respiratory infection - Scribe Statement The provider has reviewed the documentation as recorded by the Miki Chapman Provider Attestation: All medical record entries made by the Ilyaibe were at my direction and personally dictated by me. I have reviewed the chart and agree that the record accurately reflects my personal performance of the history, physical exam, medical decision making, and the department course for this patient. I have also personally directed, reviewed, and agree with the discharge instructions and disposition.
== END 2019-01-15 16:30 | disposition home or self-care (01) ==
LOC: C.ER 15:29
DX: J06.9 Acute upper respiratory infection, unspecified (principal)

== ENCOUNTER 2019-02-03 16:53 | Emergency (ER) | payer MEDICAID ==
[2019-02-03 16:53] VITALS: BMI 23.2
[2019-02-03 17:05] VITALS: O2SAT 99
[2019-02-03] MEDS ORDERED: Sodium Chloride 0.9% 1,000 ML IV ONE (17:23)
--- NOTE | 2019-02-03 17:30 | C.PDOC ---
History Of Present Illness 43 y/o female,w/PMhx of cholecystectomy, presents to the ER complaining of right sided abdominal pain which has been present for more than 1 week. Patient states that she was not evaluated for the complaint by her PMD.Patient denies having fever,chills, nausea,vomiting, and diarrhea. Time Seen by Provider: 02/03/19 17:11 Chief Complaint (Nursing): Abdominal Pain History Per: Patient History/Exam Limitations: no limitations Onset/Duration Of Symptoms: Days Current Symptoms Are (Timing): Still Present Severity: Moderate Past Medical History Reviewed: Historical Data, Nursing Documentation, Vital Signs Vital Signs: Last Vital Signs Temp 98.2 F 02/03/19 17:00 Pulse 85 02/03/19 17:00 Resp 18 02/03/19 17:00 BP 103/72 02/03/19 17:00 Pulse Ox 99 02/03/19 17:00 Primary Care Provider: Barbara Ribeiro - Medical History PMH: No Chronic Diseases Surgical History: Cholecystectomy (2017) - [facility] Procedures PHYSICAL THERAPY [facility] (04/20/13) Family History: States: No Known Family Hx - Social History Hx Tobacco Use: No Hx Alcohol Use: Yes Hx Substance Use: No - Immunization History Hx Tetanus Toxoid Vaccination: Yes Hx Influenza Vaccination: No Hx Pneumococcal Vaccination: No Review Of Systems Except As Marked, All Systems Reviewed And Found Negative. Constitutional: Negative for: Fever, Chills Gastrointestinal: Positive for: Abdominal Pain. Negative for: Nausea, Vomiting, Diarrhea Genitourinary: Negative for: Dysuria, Hematuria Physical Exam - Physical Exam Appears: Non-toxic, No Acute Distress Skin: Normal Color, Warm, Dry Head: Atraumatic, Normacephalic Eye(s): bilateral: Normal Inspection Nose: Normal Oral Mucosa: Moist Neck: Supple Chest: Symmetrical Cardiovascular: Rhythm Regular Respiratory: Normal Breath Sounds, No Rales, No Rhonchi, No Wheezing Gastrointestinal/Abdominal: Soft, Tenderness (minimal right sided tenderness), No Guarding, No Rebound Neurological/Psych: Oriented x3, Normal Speech ED Course And Treatment - Laboratory Results Result Diagrams: 02/03/19 18:20 02/03/19 18:20 O2 Sat by Pulse Oximetry: 99 (RA) Pulse Ox Interpretation: Normal Against Medical Advice - AMA Patient Left Against Medical Advice: The patient declines admission to the hospital and wishes to leave the Emergency Department. This action is against my medical advice. This decision was made with informed refusal. The patient was told that admission to the hospital is necessary. Explanation of the reasons why were discussed. The risks of leaving were explained to the patient and include, but are not limited to, worsening of known or currently unknown conditions, permanent disability and from undiagnosed or untreated conditions. The patient has the capacity to make this informed decision and understands my explanation of the current medical problem and risks of leaving. The patient voluntarily accepts these risks and signed an AMA form documenting our conversation. The patient was given the opportunity to ask questions and reconsider. The patient was encouraged to return to the Emergency Department at any time for further care. Medical Decision Making Medical Decision Making: ro appendicits vs pelvic pahtoloyg Plan: --Labs --UA --HCG,Qual. --IV Fluids --Tylenol PO labs neg. in ct scna, pt refusd ct. spent exetnsive time suggesting ct scan to ro appendicitis. pt declines asking for immediate dc will return with wrosening. signs ama Disposition - Disposition Referrals: [facility] [Outside] [facility] [Outside] [facility] [employer] [facility] [Outside] [facility] [Outside] Disposition: HOME/ ROUTINE Disposition Time: 21:00 Condition: UNKNOWN Additional Instructions: return to er with worsening. Instructions: Acute Abdomen (Belly Pain), Leaving Against Medical Advice Forms: [facility] (Khmer) - Clinical Impression Clinical Impression: Abdominal pain - Scribe Statement The provider has reviewed the documentation as recorded by the Miki Hwang Provider Attestation: All medical record entries made by the Miki were at my direction and personally dictated by me. I have reviewed the chart and agree that the record accurately reflects my personal performance of the history, physical exam, medical decision making, and the department course for this patient. I have also personally directed, reviewed, and agree with the discharge instructions and disposition.
[2019-02-03 18:24] LABS: BASO # 0.1 K/uL (0.0-0.2); EOS # 0.1 K/uL (0.0-0.7); EOS % 2.5 % (0.0-4.0); HEMOGLOBIN 14.2 g/dL (11.0-16.0); LYMPH # 1.4 K/uL (1.0-4.3); LYMPH % 25.3 % (20.0-40.0); MEAN CELL VOLUME 87.3 fL (81.0-99.0); MEAN CORPUSCULAR HEMOGLOBIN 29.9 pg (27.0-31.0); MEAN CORPUSCULAR HGB CONC 34.2 g/dL (33.0-37.0); MEAN PLATELET VOLUME 8.8 fL (7.2-11.7); MONO # 0.5 K/uL (0.0-0.8); MONO % 8.4 % (0.0-10.0); NEUT # 3.6 K/uL (1.8-7.0); NEUT % 62.8 % (50.0-75.0); RBC 4.74 Mil/uL (3.80-5.20); RED CELL DISTRIBUTION WIDTH 12.9 % (11.5-14.5); WHITE BLOOD COUNT 5.7 K/uL (4.8-10.8)
[2019-02-03 18:36] LABS: ALB/GLOB RATIO 1.4 (1.0-2.1); ALBUMIN 4.3 g/dL (3.5-5.0); ALT/SGPT 16 U/L (9-52); AST/SGOT 31 U/L (14-36); BLOOD UREA NITROGEN 12 mg/dL (7-17); CALCIUM 9.2 mg/dl (8.6-10.4); GFR NON-AFRICAN AMERICAN > 60; LIPASE 89 U/L (23-300)
[2019-02-03 18:49] LABS: HCG,QUALITATIVE URINE NEGATIVE (NEGATIVE)
[2019-02-03 18:55] LABS: SQUAMOUS EPITHIAL 5 /hpf (0-5); URINE BACTERIA OCC (<OCC); URINE BILIRUBIN NEGATIVE (NEGATIVE); URINE BLOOD NEGATIVE (NEGATIVE); URINE CLARITY Hazy (Clear); URINE COLOR Yellow (YELLOW); URINE GLUCOSE (UA) NORMAL (Normal); URINE LEUKOCYTE ESTERASE 1+ Leu/uL (Negative); URINE PROTEIN NEGATIVE (NEGATIVE); URINE UROBILINOGEN NORMAL mg/dL (0.2-1.0)
[2019-02-03 19:11] LABS: INR 1.1; PARTIAL THROMBOPLASTIN TIME 37.4 SECONDS (21-34)
[2019-02-03] MEDS ORDERED: Iohexol 300 100 ML IJ ONE (19:14)
[2019-02-03 20:48] VITALS: BP 105/76; PULSE 84; RESP 16; TEMP 98.1
== END 2019-02-03 21:00 | disposition home or self-care (01) ==
LOC: C.ER 16:53
DX: R10.9 Unspecified abdominal pain (principal)
CPT/HCPCS: 36415; 80053; 81001; 83690; 84703; 85025; 85610; 85730; 99285; J7030

== ENCOUNTER 2019-02-10 17:14 | Emergency (ER) | payer MEDICAID ==
[2019-02-10 17:15] VITALS: BMI 23.2
[2019-02-10] MEDS ORDERED: Iohexol 240 (50 ml) PO STA (19:28)
[2019-02-10 19:55] LABS: BASO # 0.1 K/uL (0.0-0.2); BASO % 0.9 % (0.0-2.0); EOS # 0.3 K/uL (0.0-0.7); EOS % 4.5 % (0.0-4.0); HEMOGLOBIN 13.4 g/dL (11.0-16.0); LYMPH # 1.6 K/uL (1.0-4.3); LYMPH % 27.7 % (20.0-40.0); MEAN CORPUSCULAR HEMOGLOBIN 29.8 pg (27.0-31.0); MEAN CORPUSCULAR HGB CONC 33.3 g/dL (33.0-37.0); MEAN PLATELET VOLUME 9.2 fL (7.2-11.7); MONO # 0.6 K/uL (0.0-0.8); MONO % 10.7 % (0.0-10.0); NEUT # 3.2 K/uL (1.8-7.0); NEUT % 56.2 % (50.0-75.0); RBC 4.48 Mil/uL (3.80-5.20); RED CELL DISTRIBUTION WIDTH 13.2 % (11.5-14.5); WHITE BLOOD COUNT 5.7 K/uL (4.8-10.8)
[2019-02-10] MEDS ORDERED: Iohexol 240 (50 ml) ONE (19:55)
[2019-02-10 19:57] LABS: MEAN CELL VOLUME 89.5 fL (81.0-99.0)
[2019-02-10 19:59] LABS: HCG,QUALITATIVE URINE NEGATIVE (NEGATIVE)
[2019-02-10 20:03] LABS: SQUAMOUS EPITHIAL 8 /hpf (0-5); URINE BACTERIA RARE (<OCC); URINE BILIRUBIN NEGATIVE (NEGATIVE); URINE BLOOD NEGATIVE (NEGATIVE); URINE CLARITY Hazy (Clear); URINE COLOR Yellow (YELLOW); URINE GLUCOSE (UA) NORMAL (Normal); URINE LEUKOCYTE ESTERASE TRACE Leu/uL (Negative); URINE PROTEIN NEGATIVE (NEGATIVE); URINE UROBILINOGEN NORMAL mg/dL (0.2-1.0)
--- NOTE | 2019-02-10 20:08 | C.PDOC ---
History Of Present Illness 43 year old female presents with RLQ pain. Patient was here last week for the same complaint, she had normal labs and CT was ordered but not done, she got scared and signed out AMA. She reports all week long pain has persisted and w orsened. Patient notes pain when laying down and nausea. Denies urinary symptoms, vaginal bleeding, vaginal discharge, fever, chills, or diarrhea. Time Seen by Provider: 02/10/19 19:16 Chief Complaint (Nursing): Abdominal Pain History Per: Patient History/Exam Limitations: no limitations Onset/Duration Of Symptoms: Days Current Symptoms Are (Timing): Worse Location Of Pain/Discomfort: RLQ Radiation Of Pain To:: None Quality Of Discomfort: Unable To Describe Associated Symptoms: Nausea. denies: Fever, Chills, Vomiting, Diarrhea, Urinary Symptoms, Other (Vaginal discharge) Exacerbating Factors: None Alleviating Factors: None Recent travel outside of the [place]: No Abnormal Vaginal Bleeding: No Past Medical History Reviewed: Historical Data, Nursing Documentation, Vital Signs Vital Signs: Last Vital Signs Temp 98.4 F 02/10/19 17:24 Pulse 86 02/10/19 17:24 Resp 20 02/10/19 17:24 BP 106/79 02/10/19 17:24 Pulse Ox 97 02/10/19 17:24 Primary Care Provider: Barbara Ribeiro - Medical History PMH: Arthritis Surgical History: Cholecystectomy (2017) - [facility] PHYSICAL THERAPY NEC (04/20/13) Family History: States: Unknown Family Hx - Social History Hx Tobacco Use: No Hx Alcohol Use: Yes Hx Substance Use: No - Immunization History Hx Tetanus Toxoid Vaccination: Yes Hx Influenza Vaccination: No Hx Pneumococcal Vaccination: No Review Of Systems Constitutional: Negative for: Fever, Chills Cardiovascular: Negative for: Chest Pain, Palpitations Respiratory: Negative for: Cough, Shortness of Breath Gastrointestinal: Positive for: Nausea, Abdominal Pain. Negative for: Vomiting, Diarrhea Genitourinary: Negative for: Dysuria, Hematuria, Vaginal Discharge, Vaginal Bleeding Neurological: Negative for: Weakness, Numbness Physical Exam - Physical Exam Appears: Non-toxic Skin: Normal Color, Warm Head: Atraumatic, Normacephalic Eye(s): bilateral: Normal Inspection Oral Mucosa: Moist Neck: Normal, Supple Chest: Symmetrical, No Tenderness Cardiovascular: Rhythm Regular Respiratory: Normal Breath Sounds, No Rales, No Rhonchi, No Wheezing Gastrointestinal/Abdominal: Soft, Tenderness (Mild to deep palpation of RLQ), No Mass, No Guarding, No Rebound, No Hernia Neurological/Psych: Oriented x3, Normal Speech ED Course And Treatment - Laboratory Results Result Diagrams: 02/10/19 19:43 02/10/19 19:43 Lab Results: Urine HCG, Qual Negative (NEGATIVE) 02/10/19 19:43 Urine HCG, Qual Negative (NEGATIVE) 02/10/19 19:43 Lab Interpretation: No Acute Changes O2 Sat by Pulse Oximetry: 97 (Room air) Pulse Ox Interpretation: Normal Progress Note: CT abd/pel, blood work, and urinalysis ordered. Reevaluation Time: 00:26 Reassessment Condition: Unchanged (Patient continues to c/o pain but appears in no distress and abdomen is soft.) Disposition Counseled Patient/Family Regarding: Studies Performed, Diagnosis, Need For Followup, Rx Given - Disposition Referrals: Barbara Ribeiro FNP [Advanced Practice Nurse] - Disposition: HOME/ ROUTINE Disposition Time: 00:27 Condition: STABLE Prescriptions: Naproxen [Naprosyn] 1 tab PO BID PRN #25 tab PRN Reason: Pain Instructions: Acute Pelvic Pain Forms: [facility] (Danish) - Clinical Impression Clinical Impression: Pelvic pain, Pelvic congestion syndrome - Scribe Statement The provider has reviewed the documentation as recorded by the Scribleti Al All medical record entries made by the Scribe were at my direction and personally dictated by me. I have reviewed the chart and agree that the record accurately reflects my personal performance of the history, physical exam, medical decision making, and the department course for this patient. I have also personally directed, reviewed, and agree with the discharge instructions and disposition.
[2019-02-10 20:17] LABS: ALB/GLOB RATIO 1.5 (1.0-2.1); ALBUMIN 4.6 g/dL (3.5-5.0); ALT/SGPT 19 U/L (9-52); AST/SGOT 37 U/L (14-36); BLOOD UREA NITROGEN 9 mg/dL (7-17); CALCIUM 8.9 mg/dl (8.6-10.4); GFR NON-AFRICAN AMERICAN > 60; LIPASE 99 U/L (23-300)
[2019-02-10] MEDS ORDERED: Iodixanol 320 MG/ML 100 ML BOTTLE IV ONE (22:12)
[2019-02-11 00:25] VITALS: BP 117/87; PULSE 73; RESP 16; TEMP 98.1
[2019-02-11 00:30] VITALS: O2SAT 97
[2019-02-11] MEDS ORDERED: Naproxen 550 mg Tab PO STA (00:30)
[2019-02-11] MEDS ORDERED: Naproxen 550 mg Tab PO ONE (00:37)
--- NOTE | 2019-02-11 08:34 | CT ---
Date of service: 02/10/2019 PROCEDURE: CT Abdomen and Pelvis with contrast HISTORY: Abdominal pain COMPARISON: None. TECHNIQUE: Multiple contiguous axial images were performed through the abdomen and pelvis with the use of intravenous contrast. Subsequently, sagittal and coronal reformatted images were obtained. Radiation dose: Total exam DLP = 230.54 mGy-cm. This CT exam was performed using one or more of the following dose reduction techniques: Automated exposure control, adjustment of the mA and/or kV according to patient size, and/or use of iterative reconstruction technique. FINDINGS: LOWER THORAX: Scattered atelectasis and motion artifact at the lung bases. LIVER: Unremarkable. No gross lesion or ductal dilatation. GALLBLADDER AND BILE DUCTS: Prior cholecystectomy. Postsurgical dilatation of the common bile duct. PANCREAS: Unremarkable. No gross lesion or ductal dilatation. SPLEEN: Diminutive spleen. Few punctate splenic hypodensities. ADRENALS: Unremarkable. No mass. KIDNEYS AND URETERS: Focal area of low attenuation seen within the anterior midpole of the right kidney best seen on series 4, image 62 measuring up to 1 centimeter. This may be related to adjacent streak artifact however underlying renal pathology such as focal acute pyelonephritis cannot entirely be excluded. Clinical correlation. VASCULATURE: Unremarkable. No aortic aneurysm. No aortic atherosclerotic calcification or mural plaque present. BOWEL: Unremarkable. No obstruction. No gross mural thickening. Fecal retention in the left hemicolon. APPENDIX: Appendix not well identified. PERITONEUM: Unremarkable. No free fluid. No free air. LYMPH NODES: Unremarkable. No enlarged lymph nodes. BLADDER: Distended urinary bladder. REPRODUCTIVE: Unremarkable. 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 BONES: Degenerative changes in the spine. OTHER FINDINGS: None. IMPRESSION: Limited study secondary to extensive motion and streak artifact. Focal area of low attenuation seen within the anterior midpole of the right kidney best seen on series 4, image 62 measuring up to 1 centimeter. This may be related to adjacent streak artifact however underlying renal pathology such as focal acute pyelonephritis cannot entirely be excluded. Clinical correlation. Prior cholecystectomy. Postsurgical dilatation of the common bile duct. Appendix not well identified. Distended urinary bladder. A preliminary report was generated at 12:02 a.m. on 02/11/[address] eJff Manley from [facility]. This case was placed in the PA review folder for clinical correlation with the right kidney.
== END 2019-02-11 00:37 | disposition home or self-care (01) ==
LOC: C.ER 17:14
DX: R10.2 Pelvic and perineal pain (principal); N94.89 Other specified conditions associated with female genital organs and menstrual cycle; Z90.49 Acquired absence of other specified parts of digestive tract
CPT/HCPCS: 74177; 80053; 81001; 83690; 84703; 85025; 99285; Q9966; Q9967